=== PATIENT | female | born 1990 ===

== ENCOUNTER 2017-09-04 09:24 | Inpatient (IN) | payer MEDICAID, SELFPAY ==
[2017-09-04 09:33] VITALS: BMI 39.4
[2017-09-04] MEDS: Lactated Ringer's 1,000 ML IV SCH ×2 (10:30→11:30)
[2017-09-04] MEDS ORDERED: ceFAZolin 2 GM in Sodium Chloride 0.9% 100 ML IVPB ONE (10:46)
[2017-09-04] MEDS ORDERED: Oxytocin 30 units/LR 500ML 30 U/500 ML BAG IV ONE (10:48)
[2017-09-04 11:06] LABS: BASO % 0.3 % (0.0-2.0); EOS # 0.1 K/uL (0.0-0.7); EOS % 1.8 % (0.0-4.0); HEMATOCRIT 33.2 % (34.0-47.0); LYMPH % 34.9 % (20.0-40.0); MEAN CELL VOLUME 81.7 fl (81.0-99.0); MEAN CORPUSCULAR HEMOGLOBIN 27.7 pg (27.0-31.0); MEAN CORPUSCULAR HGB CONC 33.9 g/dL (33.0-37.0); MONO # 0.5 K/uL (0.0-0.8); MONO % 9.2 % (0.0-10.0); NEUT # 3.1 K/uL (1.8-7.0); NEUT % 53.8 % (50.0-75.0); NRBC % 0.2 % (0.0-0.0); RED CELL DISTRIBUTION WIDTH 15.6 % (11.5-14.5); WHITE BLOOD COUNT 5.7 K/uL (4.8-10.8)
[2017-09-04] MEDS ORDERED: ePHEDrine 50 mg/ml Inj ONE (13:07)
[2017-09-04] MEDS ORDERED: Morphine 1 mg/ml preservative-free Inj(Duramorph) ONE (13:07)
[2017-09-04] MEDS ORDERED: Oxycodone/Acetaminophen 5/325 mg Tab PO PRN ×2 (14:28)
[2017-09-04] MEDS ORDERED: DiphenhydrAMINE 50 mg/ml Inj IVP PRN (15:36)
[2017-09-05] MEDS ORDERED: Lactated Ringer's 1,000 ML IV SCH (03:30)
[2017-09-05 06:40] LABS: HEMATOCRIT 29.8 % (34.0-47.0); MEAN CELL VOLUME 83.2 fl (81.0-99.0); MEAN CORPUSCULAR HGB CONC 33.6 g/dL (33.0-37.0); RED CELL DISTRIBUTION WIDTH 15.6 % (11.5-14.5); WHITE BLOOD COUNT 7.6 K/uL (4.8-10.8)
[2017-09-05] MEDS: Multivitamin With Minerals Tab PO SCH (09:41)
--- NOTE | 2017-09-05 12:23 | OBPPN ---
Datetime: 09/05/2017 06:32 PP Pain Prov: Within normal limits PP Nausea Prov: Denies PP Flatus Prov: Yes PP Breasts Prov: Normal PP Heart Prov: Normal PP Lungs Prov: Normal PP Abdomen/Uterus Prov: Normal PP Lochia Prov: Normal PP Vulva/Perineum Prov: Normal PP CVA Tenderness Prov: Normal PP Extremities Prov: Normal PP Impression Prov: Normal progression PP Plan Prov: Continue present management PP Progress Note Prov: PPD #1 S: 26 y/o seen and examined at bedside. No acute overnight events. Pt denies reports mild pel genet pain controlled with pain meds. OOB/Ambulation well without dizziness. Breast/Bottle feeding with out difficulty. Tolerating PO diet well. Lochia is similar to menses volume. Voiding freely with no b lood noted. No BM but pass gas per rectum. Denies fever/chills, diarrhea, [place]ase[place]/vomiting, CP/SOB, li ghtheadedness, calf pain. Pt reported finding a bump on her right eye this morning. Non painful, no i tchiness, discharge, or visual disturbances. Declines circumcision for baby O:BP 120/58, HR 90, T 98 (No hypertensive episodes) Blood Type: O+ Rubella Immune H/H: 11.2/33.2 (antepartum) Physical exam: General: A_O HEENT: White Sclera, pink conjunctiva, oral mucosa moist, Right eye noted to have small stye on up per eyelid, mildly inflamed, no discharge or skin breakdown Breast: enjorged/non tender/no lesions CVS: RRR, nrml S1, S2, no murmurs Lungs: Clear to auscultation BL Abdomen: non distended, +BS, firm fundus @ umbilical level. Soft, appropriate TTP Neuro/Psych: AAO x3, preserved affect and mood Assessment: 26 Y/o now s/p delivery on date 09/04 14:00. Pt afebrile for on day 1, tolerating pain w ith meds, tolerating oral intake, adequate urine output. Doing well on PPD#1. Plan: Discontinue IV fluids Discontinue Finney (adequate urine output>300cc) for C/S at 6am today Remove after 24 hours (2pm today) Warm compress advised for stye OOB with caution SCD's for DVT prophylaxis for C/S Percocet 5/325mg 1-2 tablets po q6 for mod/sev pain Ibuprofen 600mg 1 tab q6 Encourage and ambulation Senakot 17.2 mg PO QHS Anticipated D/C to home on 09/07 Phillip Mahan, PGY1 The patient was seen with the resident and agree with the notes
[2017-09-06] MEDS: Multivitamin With Minerals Tab PO SCH (10:25)
--- NOTE | 2017-09-06 13:23 | OBPPN ---
Datetime: 09/06/2017 06:44 PP Pain Prov: Within normal limits PP Nausea Prov: Denies PP Flatus Prov: Yes PP Breasts Prov: Normal PP Heart Prov: Normal PP Lungs Prov: Normal PP Abdomen/Uterus Prov: Normal PP Lochia Prov: Normal PP Vulva/Perineum Prov: Normal PP CVA Tenderness Prov: Normal PP Extremities Prov: Normal PP Impression Prov: Normal progression PP Plan Prov: Continue present management PP Progress Note Prov: PPD #2 S: 26 y/o seen and examined at bedside. No acute overnight events. Pt denies reports mild pel genet pain controlled with pain meds. OOB/Ambulation well without dizziness. Breast/Bottle feeding with out difficulty. Tolerating PO diet well. Lochia is similar to menses volume. Voiding freely with no b lood noted. No BM but pass gas per rectum. Denies fever/chills, diarrhea, n[place]/vomiting, CP/SOB, li ghtheadedness, calf pain. Reports improvement in right eye stye. O:BP 134/87, HR 90, T 98.7 (No hypertensive episodes) Blood Type: O+ Rubella Immune H/H: 11.2/33.2 (antepartum) H/H: 10/29.8 (post ) Physical exam: General: A_O HEENT: White Sclera, pink conjunctiva, oral mucosa moist Breast: enjorged/non tender/no lesions CVS: RRR, nrml S1, S2, no murmurs Lungs: Clear to auscultation BL Abdomen: non distended, +BS, firm fundus @ umbilical level. Soft, appropriate TTP Neuro/Psych: AAO x3, preserved affect and mood Assessment: 26 Y/o now s/p delivery on date 09/04 14:00. Pt afebrile for on day 2, tolerating pain w ith meds, tolerating oral intake, adequate urine output. Doing well on PPD#12 Plan: Dressing removed yesterday, clean and dry. OOB with caution SCD's for DVT prophylaxis for C/S Percocet 5/325mg 1-2 tablets po q6 for mod/sev pain Ibuprofen 600mg 1 tab q6 Encourage and ambulation Senakot 17.2 mg PO QHS Colace 100mg BID for this morning (9am, 5pm) Anticipated D/C to home on 09/07 Phillip Mahan PGY1 Attending Addendum: I saw and examined the patient at bedside this morning. I reviewed the resident note above and agr ee with findings and managment. In addition patients reports passing gas and +bm without difficulty, and formula feeding, bonding well, unsure of contraception but more likely IUD postpart um. Patient requesting to go home today because of her first child. Ambulating without difficulty, tolerating po well, pain well controlled with po meds. Postop H/H stable, lochia minimal. Incision clean, dry, intact, benito in place. DC home today with f/u in 2 weeks for wound check at [facility]. Vital Signs Provider PP: Reviewed; Within Normal Limits
--- NOTE | 2017-09-06 13:28 | OBDCSUM ---
Datetime: 09/06/2017 13:23 Discharged to, Provider: Home Follow up at, Provider: Dr. Caldwell Disch Instr Activity: Normal activity Disch Instr Diet: Regular Discharge Instructions, Provider: Specific instructions as noted Discharge Diagnosis, Provider: Term Delivered Discharge Time: 09/06/2017 13:23 Follow up in weeks, Provider: 2wks and 6wks Discharge Instruct Comment, Prov: Avoid heavy lifting, no driving for 2 weeks, 2wk wound check Contraception discussed, Prov: Yes Disch Activity Restrictions: No lifting; No driving; Nothing in vagina - Lillie, tampons, douch e Discharge Comment, Provider: s/p repeat c/s POD#2, doing well DC home Rx: ibuprofen mod pain, percocet for severe pain, docusate while taking percocet ED precautions for PEC, Bleeding, CP/SOB/Abn pain/fever encouraged. Discharge Diagnosis Prov Other: s/p repeat c/s delivery POD#2 Contraception after Delivery: IUD
[2017-09-06 19:08] VITALS: BP 108/55; PULSE 81; RESP 19; TEMP 98.6; O2SAT 100
== END 2017-09-06 15:00 | disposition home or self-care (01) | DRG 371 ==
LOC: H.EROB2 09:24 → H.L&D 09:37 → H.OB/GYN 16:58
PROVIDERS: ADMIT Obstetrics & Gynecology; ATTEND Obstetrics & Gynecology
PROC: 10D00Z1 Extraction of Products of Conception, Low, Open Approach (ICD-10-PCS; principal; 2017-09-04)
PROC: 4A1HXCZ Monitoring of Products of Conception, Cardiac Rate, External Approach (ICD-10-PCS; 2017-09-04)
DX: O34.211 Maternal care for low transverse scar from previous cesarean delivery (principal); O98.82 Other maternal infectious and parasitic diseases complicating childbirth; N85.8 Other specified noninflammatory disorders of uterus; Z3A.41 41 weeks gestation of pregnancy; Z37.0 Single live birth; H00.013 Hordeolum externum right eye, unspecified eyelid